=== PATIENT | male | born 1960 | race Caucasian/White ===

== ENCOUNTER 2022-01-08 05:42 | Day surgery (SDC) | payer OTHER ==
[~2022-01-08 05:42] MED LIST: Sodium Chloride 0.9% 10 ML Syringe FLUSH SCH
[2022-01-08] MEDS ORDERED: Midazolam 1 MG/ML 2 ML SDV IV ONE ×7 (05:43→06:39)
[2022-01-08] MEDS ORDERED: fentaNYL 100 MCG/2 ML SDV IV ONE ×3 (05:43→06:30)
[2022-01-08] MEDS ORDERED: Sodium Chloride 0.9% 10 ML Syringe FLUSH PRN (06:00)
[2022-01-08] MEDS ORDERED: Dextrose 5%-0.45% NaCl 1,000 ML IV SCH (06:00)
[2022-01-08] MEDS ORDERED: fentaNYL 100 MCG/2 ML SDV ONE (06:13)
[2022-01-08] MEDS ORDERED: Midazolam 1 MG/ML 2 ML SDV ONE (06:13)
== END 2022-01-08 08:55 | disposition home or self-care (01) ==
LOC: DL.ENDO 05:42
PROVIDERS: ATTEND Internal Medicine Gastroenterology
DX: Z12.11 Encounter for screening for malignant neoplasm of colon (principal); K57.30 Diverticulosis of large intestine without perforation or abscess without bleeding; K64.8 Other hemorrhoids; D12.2 Benign neoplasm of ascending colon; E66.09 Other obesity due to excess calories; E11.9 Type 2 diabetes mellitus without complications; I10 Essential (primary) hypertension; N40.0 Benign prostatic hyperplasia without lower urinary tract symptoms; Z68.31 Body mass index [BMI] 31.0-31.9, adult
CPT/HCPCS: 45385; J2250; J3010; J7042